=== PATIENT | male | born 1975 | race Caucasian/White ===

== ENCOUNTER 2024-07-27 17:53 | Emergency (ER) | payer OTHER ==
[~2024-07-27] VITALS: Ht 170.2 cm; Wt 86.0 kg
[2024-07-27] MEDS: HALOPERIDOL LACTATE 5MG/ML VIAL IM ONE (18:40)
[2024-07-27] MEDS: LORAZEPAM 2MG/ML INJ IM ONE (18:40)
[2024-07-27 19:10] VITALS: O2SAT 96
[2024-07-27 20:23] LABS: CLARITY URINE CLEAR (CLEAR); COLOR URINE YELLOW (YELLOW); GLUCOSE URINE TRACE (NEGATIVE); KETONES URINE NEGATIVE (NEGATIVE); LEUKOCYTE ESTERASE URINE NEGATIVE (NEGATIVE); NITRITE URINE NEGATIVE (NEGATIVE); OCCULT BLOOD URINE 3+ (NEGATIVE); PROTEIN URINE 1+ (NEGATIVE); SPECIFIC GRAVITY URINE 1.012 (1.005-1.030)
[2024-07-27 20:36] LABS: *AMPHETAMINES SCREEN URINE PRESUMPTIVE POSITIVE (NEGATIVE); *BARBITURATES SCREEN URINE NEGATIVE (NEGATIVE); *BENZODIAZEPINES SCREEN URINE NEGATIVE (NEGATIVE); *COCAINE SCREEN URINE NEGATIVE (NEGATIVE); CANNABINOID URINE SCREEN NEGATIVE (NEGATIVE); ECSTASY MDMA SCREEN URINE NEGATIVE (NEGATIVE); METHADONE URINE SCREEN NEGATIVE (NEGATIVE); OPIATES URINE SCREEN NEGATIVE (NEGATIVE); PHENCYCLIDINE URINE SCREEN NEGATIVE (NEGATIVE)
[2024-07-27 20:45] LABS: BACTERIA URINE 1+; SQUAMOUS EPITHELIAL CELL URINE FEW /lpf (RARE/1+); WBC URINE 0-2 /hpf (0-2)
[2024-07-27 21:25] LABS: BASOPHILS % 0.4 % (0.0-2.0); HEMATOCRIT. 43.7 % (42.0-52.0); HEMOGLOBIN. 14.7 g/dL (14.0-18.0); LYMPHOCYTES % 12.4 % (20.0-50.0); MEAN CORPUSCULAR HEMOGLOBIN 29.2 pg (28.0-32.0); MEAN CORPUSCULAR HGB CONC 33.8 g/dL (31.0-37.0); MEAN CORPUSCULAR VOLUME 86.4 fL (80.0-94.0); MEAN PLATELET VOLUME 6.9 fl (7.4-10.4); MONOCYTES % 8.7 % (2.0-8.0); NEUTROPHILS % 78.5 % (40.0-76.0); PLATELET 301 x1000/uL (130-400); RED BLOOD CELL COUNT 5.05 mill/uL (4.7-6.1); RED CELL DISTRIBUTION WIDTH 14.3 % (11.6-14.6); WHITE BLOOD COUNT 14.8 x1000/uL (4.5-11.0)
[2024-07-27 21:28] LABS: CHLORIDE 106 mEq/L (98-107); POTASSIUM 3.7 mEq/L (3.5-5.1); SODIUM 139 mEq/L (136-145)
[2024-07-27 21:29] LABS: CARBON DIOXIDE 18 mEq/L (21-32)
[2024-07-27 21:30] LABS: CALCIUM 10.2 mg/dL (8.7-10.4)
[2024-07-27 21:34] LABS: CREATININE 1.5 mg/dL (0.6-1.3); GLUCOSE 104 mg/dL (70-105)
[2024-07-27 21:35] LABS: UREA NITROGEN BLOOD 16 mg/dL (9-23)
[2024-07-27 21:36] LABS: ACETAMINOPHEN < 2 ug/mL (10-30)
[2024-07-27 21:39] LABS: ETHANOL BLOOD < 10 mg/dL (<10)
[2024-07-28 23:24] VITALS: BP 106/68; PULSE 94; RESP 16; TEMP 36.6; O2SAT 97
== END 2024-07-28 23:34 ==
LOC: ER 17:53 → EDBD 17:53 → ER 07-28 23:34
DX: R46.2 Strange and inexplicable behavior (principal); Z20.822 Contact with and (suspected) exposure to COVID-19; Z79.899 Other long term (current) drug therapy
CPT/HCPCS: 80305; 80048; 81003; 80307; 80329; 80320; 85025; 36415; 96372; 99291; 87426; J1630; J2060; Z7610 ×5; A4606; G0480